=== PATIENT | female | born 1940 | race Caucasian/White ===

== ENCOUNTER 2018-11-12 21:07 | Inpatient (IN) | payer MEDICARE, OTHER ==
[~2018-11-12] VITALS: Ht 165.1 cm; Wt 81.0 kg
[~2018-11-12 21:07] MED LIST: ASPI-611 PO; ATOR40TA PO; CLOP75TA35 PO; ESOM20CA38 PO; ISOS30TA9 PO; LISI40TA4 PO; LORA1TAB PO; METO25TA6 PO; NITR0.4T SL
--- NOTE | 2018-11-12 21:51 | NUR ---
MED REC ALMOST COMPLETE. PT SAID SHE TAKES A "LITTLE WHITE PILL...POSSIBLY METOPROLOL...I WAS SUPPOSE TO TAKE 2 PILLS BUT NOW I TAKE ONE", PT SAID SHE GOES TO [facility] IN [place],
--- NOTE | 2018-11-12 22:13 | NUR ---
HOSPITALIST AT BEDSIDE TO TORIE PT
[2018-11-12] MEDS: nitroGLYCERIN 0.4mg SUBLingual tab SL PRN ×2 (22:57→23:07)
[2018-11-12] MEDS ORDERED: ondansetron/PF 4mg/2ml inj IV PRN (23:00)
[2018-11-12] MEDS ORDERED: magnesium hydroxide 30ml (MOM) UD suspension PO PRN (23:00)
[2018-11-12] MEDS ORDERED: mag hydrox/Alum hydrox/simeth 30ml oral suspension PO PRN (23:00)
[2018-11-12] MEDS ORDERED: acetaminophen 325mg tablet PO PRN (23:00)
--- NOTE | 2018-11-12 23:09 | NUR ---
PT HAS LARGE AMOUNT OF SAVAGE, REGISTRATION AWARE, FULL SET OF DENTURES, PURSE, SHIRT, SHOES, PANTS, UNDERWEAR, BRA, BLOUSE, NO WEAPONS
[2018-11-12] MEDS ORDERED: ISOS30TA6 PO (23:28)
[2018-11-13] VITALS (7 sets, daily range): BP systolic 111–154; BP diastolic 47–83
--- NOTE | 2018-11-13 00:15 | NUR ---
Patient arrived in room 3025 on a gurney with all her belongings. Pt ambulated to bed with a steady gait. Telemetry applied. VS WNL. No C/O CP. Pt oriented to room, bed, and call light. I have received report from Catherine NEFF and had the opportunity to ask questions and assume patient care.
[2018-11-13 05:51] LABS: BASOPHILS # (AUTO) 0.1 X10'3 (0-0.2); BASOPHILS % (AUTO) 0.9 % (0-1); EOSINOPHILS # (AUTO) 0.2 X10'3 (0-0.9); EOSINOPHILS % (AUTO) 2.3 % (0-6); HEMATOCRIT 33.9 % (35.0-45.0); HEMOGLOBIN 11.5 g/dl (12.0-16.0); LYMPHOCYTES # (AUTO) 1.7 X10'3 (1.1-4.8); LYMPHOCYTES % (AUTO) 24.1 % (21-51); MEAN CORPUSCULAR VOLUME 82.5 FL (78-98); MEAN PLATELET VOLUME 9.1 FL (7.4-10.4); MONOCYTES # (AUTO) 0.8 X10'3 (0-0.9); MONOCYTES % (AUTO) 11.5 % (2-12); NEUTROPHILS # (AUTO) 4.3 X10'3 (1.8-7.7); NEUTROPHILS % (AUTO) 61.2 % (42-75); PLATELET COUNT 278 X10'3 (140-440); RED CELL DISTRIBUTION WIDTH 14.2 % (11.5-14.5)
[2018-11-13 06:01] LABS: ALANINE AMINOTRANSFERASE 37 U/L (12-78); ALBUMIN 3.2 G/DL (3.4-5.0); ALBUMIN/GLOBULIN RATIO 0.9 (1.1-1.5); ALKALINE PHOSPHATASE 72 IU/L (46-116); ANION GAP 7 (8-16); ASPARTATE AMINO TRANSFERASE 25 U/L (10-37); BILIRUBIN,TOTAL 0.6 MG/DL (0.1-1.0); BLOOD UREA NITROGEN 14 MG/DL (7-18); BUN/CREATININE RATIO 14.3 (6.6-38.0); CALCIUM 8.8 MG/DL (8.5-10.1); CHLORIDE 111 MMOL/L (99-107); CREATININE 0.98 MG/DL (0.40-0.90); GLUCOSE 137 MG/DL (70-104); POTASSIUM 3.5 MMOL/L (3.5-5.1); SODIUM 144 MMOL/L (135-145); TOTAL PROTEIN 6.6 G/DL (6.4-8.2); eGFR 55 ML/MIN
--- NOTE | 2018-11-13 06:02 | NUR ---
Problems reprioritized. Patient report given, questions answered & plan of care reviewed with Silvia NEFF.
--- NOTE | 2018-11-13 06:33 | NUR ---
Patient in room PCU 3025 A. I have received report from AISHWARYA Samuels and had the opportunity to ask questions and assume patient care. Pt sleeping at this time, no distress noted.
[2018-11-13] MEDS: isosorbide mononitrate 30mg tab.SR.24H PO SCH (07:44)
[2018-11-13] MEDS: atorvastatin 20mg tablet PO SCH (07:44)
[2018-11-13] MEDS: clopidogrel 75mg tablet PO SCH (07:45)
[2018-11-13] MEDS: pantoprazole 40mg Tablet.DR PO SCH (07:45)
[2018-11-13] MEDS: heparin, porcine 5000 units/ml vial SQ SCH ×2 (07:46→19:30)
[2018-11-13] MEDS: lisinopril 20mg tablet PO SCH (07:49)
[2018-11-13] MEDS ORDERED: isosorbide dinitrate 30mg tablet PO SCH (08:00)
--- NOTE | 2018-11-13 13:43 | NUR ---
Paged Dr. Cedillo regarding medication headache. PAGER ID: [phone] MESSAGE: [phone] Mitzy Stout. Pt c/o headache, she does not have an rx for pain. Thanks. Lotus Woods RN [phone]
[2018-11-13] MEDS: acetaminophen 325mg tablet PO PRN (14:58)
--- NOTE | 2018-11-13 17:56 | NUR ---
[place] documentation: I have reviewed and agree with all interventions, assessments performed and documented by Lotus NEFF. [facility] Medication Administration: For this medication-pass time frame, all medication were reviewed, dispensed, administered and documented per hospital policy by AISHWARYA Gautam.
--- NOTE | 2018-11-13 18:20 | NUR ---
Patient in room PCU 8762D. I have received report from Silvia RN and IASHWARYA Gautam and had the opportunity to ask questions and assume patient care.
--- NOTE | 2018-11-13 18:32 | NUR ---
Problems reprioritized. Patient report given, questions answered & plan of care reviewed with Kindra NEFF. Patient stable at transfer of care.
[2018-11-14 02:00] VITALS: BP 139/61
[2018-11-14 06:00] VITALS: BP 136/79
--- NOTE | 2018-11-14 06:21 | NUR ---
Problems reprioritized. Patient report given, questions answered & plan of care reviewed with AISHWARYA Vega and AISHWARYA Kelsey.
--- NOTE | 2018-11-14 06:30 | NUR ---
Patient in room PCU 3025. I have received report from Kindra NEFF and had the opportunity to ask questions and assume patient care. Patient asleep in bed. In no acute distress. Will continue to monitor.
--- NOTE | 2018-11-14 06:34 | NUR ---
Patient in room PCU 3025. I have received report from Kindra NEFF and had the opportunity to ask questions and assume patient care. Pt is in bed sleeping, all needs met at this time. will continue to monitor.
[2018-11-14 06:38] LABS: BASOPHILS # (AUTO) 0.1 X10'3 (0-0.2); BASOPHILS % (AUTO) 1.3 % (0-1); EOSINOPHILS # (AUTO) 0.2 X10'3 (0-0.9); EOSINOPHILS % (AUTO) 3.4 % (0-6); HEMATOCRIT 35.5 % (35.0-45.0); HEMOGLOBIN 11.9 g/dl (12.0-16.0); LYMPHOCYTES # (AUTO) 1.5 X10'3 (1.1-4.8); LYMPHOCYTES % (AUTO) 26.1 % (21-51); MEAN CORPUSCULAR HEMOGLOBIN 27.5 PG (27.0-31.0); MEAN CORPUSCULAR HGB CONC 33.4 g/dL (33.0-36.5); MEAN CORPUSCULAR VOLUME 82.4 FL (78-98); MEAN PLATELET VOLUME 9.1 FL (7.4-10.4); MONOCYTES # (AUTO) 0.7 X10'3 (0-0.9); MONOCYTES % (AUTO) 12.5 % (2-12); NEUTROPHILS # (AUTO) 3.2 X10'3 (1.8-7.7); NEUTROPHILS % (AUTO) 56.7 % (42-75); PLATELET COUNT 271 X10'3 (140-440); RED BLOOD COUNT 4.31 X10'6 (4.20-5.60); RED CELL DISTRIBUTION WIDTH 14.1 % (11.5-14.5); WHITE BLOOD COUNT 5.6 X10'3 (4.5-11.0)
[2018-11-14 06:40] LABS: ALANINE AMINOTRANSFERASE 39 U/L (12-78); ALBUMIN 3.1 G/DL (3.4-5.0); ALBUMIN/GLOBULIN RATIO 0.9 (1.1-1.5); ALKALINE PHOSPHATASE 70 IU/L (46-116); ANION GAP 6 (8-16); ASPARTATE AMINO TRANSFERASE 24 U/L (10-37); BILIRUBIN,TOTAL 0.4 MG/DL (0.1-1.0); BLOOD UREA NITROGEN 12 MG/DL (7-18); CALCIUM 8.8 MG/DL (8.5-10.1); CHLORIDE 111 MMOL/L (99-107); CREATININE 0.86 MG/DL (0.40-0.90); GLUCOSE 117 MG/DL (70-104); POTASSIUM 4.4 MMOL/L (3.5-5.1); SODIUM 144 MMOL/L (135-145); TOTAL PROTEIN 6.7 G/DL (6.4-8.2); eGFR 64 ML/MIN
[2018-11-14 08:00] VITALS: BP_SYST 135; BP_SYST 150; BP_SYST 153; BP_DIAS 54; BP_DIAS 76; BP_DIAS 81
[2018-11-14] MEDS: atorvastatin 20mg tablet PO SCH (08:27)
[2018-11-14] MEDS: clopidogrel 75mg tablet PO SCH (08:27)
[2018-11-14] MEDS: isosorbide mononitrate 30mg tab.SR.24H PO SCH (08:27)
[2018-11-14] MEDS: pantoprazole 40mg Tablet.DR PO SCH (08:27)
[2018-11-14] MEDS: heparin, porcine 5000 units/ml vial SQ SCH (08:31)
[2018-11-14] MEDS: lisinopril 20mg tablet PO SCH (08:31)
[2018-11-14] MEDS: acetaminophen 325mg tablet PO PRN ×2 (09:15→14:20)
[2018-11-14 11:00] VITALS: BP 135/54
[2018-11-14 15:00] VITALS: BP 128/49
--- NOTE | 2018-11-14 17:35 | NUR ---
Orientee documentation: I have reviewed and agree with all interventions, assessments performed and documented by Low NEFF. [place] Medication Administration: For this medication-pass time frame, all medication were reviewed, dispensed, administered and documented per hospital policy by Low NEFF.
--- NOTE | 2018-11-14 20:15 | NUR ---
PATIENT DISCHARGED HOME WITH ALL BELONGINGS INCLUDING THOSE FROM THE .
== END 2018-11-14 20:10 | disposition home or self-care (01) | DRG 312 ==
LOC: ER 21:07 → PCU 3S 23:44 → CMPBEDREQ 11-13 00:02
PROVIDERS: ADMIT Internal Medicine; ATTEND Family Medicine
PROC: 4A10X4Z Monitoring of Central Nervous Electrical Activity, External Approach (ICD-10-PCS; principal; 2018-11-13)
DX: R55 Syncope and collapse (principal); I25.10 Atherosclerotic heart disease of native coronary artery without angina pectoris; R00.1 Bradycardia, unspecified; Z80.1 Family history of malignant neoplasm of trachea, bronchus and lung; Z95.5 Presence of coronary angioplasty implant and graft; Z82.3 Family history of stroke
CPT/HCPCS: 36415; 70544; 70551; 80053; 84484; 85025; 87081; 93005; 93306; 93880; 95816; 99285; G0378; J1644